=== PATIENT | female | born 1995 | race Caucasian/White ===

== ENCOUNTER 2019-03-14 22:44 | Emergency (ER) | payer OTHER ==
[~2019-03-14] VITALS: Ht 154.9 cm; Wt 62.4 kg
[2019-03-15 00:49] VITALS: BP 120/73
== END 2019-03-15 00:53 | disposition home or self-care (01) ==
LOC: ED 03-15 00:20
DX: N89.8 Other specified noninflammatory disorders of vagina (principal)
CPT/HCPCS: 81001; 81025; 87210; 87491; 87591; 87808; 96372; 99283; J0696; J3490; Q0162